=== PATIENT | male | born 1965 | race Caucasian/White ===

== ENCOUNTER → 2017-10-27 | Outpatient (CLI) | payer OTHER ==
[~2017-10-27] MED LIST: ADVAIRDISKUS; PROVENTIL
== END ==
LOC: M.RAD 10:58
DX: J18.9 Pneumonia, unspecified organism (principal); R91.8 Other nonspecific abnormal finding of lung field; J98.11 Atelectasis; J84.10 Pulmonary fibrosis, unspecified